=== PATIENT | female | born 1960 | race Caucasian/White ===

== ENCOUNTER 2017-07-01 05:34 | Inpatient (IN) | payer BC, OTHER ==
[~2017-07-01] VITALS: Ht 154.9 cm; Wt 100.3 kg
[~2017-07-01 05:34] MED LIST: AMLODIPINE BES2.5 MG PO; B-COMPLEX-VITA1 EACH PO; CALCIUM 600 MG1 EACH PO; CHOLESTYRAMINE378 GM PO; HYDROCHLOROTHIA25 MG PO; LASIX20 MG PO; LINEZOLID600 MG PO; OMEPRAZOLE40 M1 PO; PENTASA500 MG PO; PREDNISONE5 MG PO; RISEDRONATE SOD35 M1 PO; TAMOXIFEN CITRA20 MG PO; TRAMADOL HCL50 MG PO
[2017-07-01 06:50] LABS: EOSINOPHIL (%) 0.5 % (0-5); EOSINOPHIL COUNT 0.1 K/uL (0-0.3); IMMATURE GRANULOCYTE (%) 0.3 % (0.0-0.7); IMMATURE GRANULOCYTE COUNT 0.1 K/uL; LYMPHOCYTE COUNT 2.7 K/uL (1.0-2.8); MCH 25.3 PG (29.0-34.0); MCHC 31.1 G/DL (30.0-36.0); MCV 81.3 FL (83-99); MEAN PLAT.VOLUME 9.3 uM^3 (9.5-12.4); MONOCYTE (%) 5.7 % (3-12); MONOCYTE COUNT 0.8 K/uL (0-0.8); NEUTROPHIL (%) 75.3 % (45-76); PLATELET COUNT 279 K/uL (156-360); RBC DIS.WIDTH-CV 15.9 % (11.8-14.6); RBC DIS.WIDTH-SD 47.1 % (39-53); RED BLOOD COUNT 4.43 M/uL (3.80-5.20); WHITE BLOOD COUNT 14.7 K/uL (4.1-10.2)
[2017-07-01 07:18] LABS: ANION GAP 10 MEQ/L (2-14); CHLORIDE 101 MEQ/L (99-109); SAMPLE HEMOLYSIS CHECK 0; SAMPLE ICTERIC CHECK 0; SAMPLE LIPEMIA CHECK 0; SODIUM 138 MEQ/L (136-147)
[2017-07-01 07:23] LABS: GFR ESTIMATE (CALCULATED) 55 mL/min/; GLUCOSE 81 mg/dL (70-99); UREA NITROGEN (BUN) 12 mg/dL (9-23)
[2017-07-01] MEDS ORDERED: CYANOCOBAL1000 MCG/2 IM (08:46)
[2017-07-01 10:46] VITALS: BP 119/59
[2017-07-01 15:29] VITALS: BP 126/61
[2017-07-01 19:28] VITALS: BP 133/66
[2017-07-01 23:41] VITALS: BP 152/63
[2017-07-02 03:56] VITALS: BP 123/58
[2017-07-02 06:26] LABS: EOSINOPHIL (%) 1.2 % (0-5); EOSINOPHIL COUNT 0.2 K/uL (0-0.3); IMMATURE GRANULOCYTE (%) 0.3 % (0.0-0.7); INSTRUMENT ABS NEUTROPHIL CT 9.1 K/uL; MCHC 31.5 G/DL (30.0-36.0); MCV 82.5 FL (83-99); MEAN PLAT.VOLUME 10.1 uM^3 (9.5-12.4); MONOCYTE (%) 6.1 % (3-12); MONOCYTE COUNT 0.8 K/uL (0-0.8); NEUTROPHIL (%) 69.5 % (45-76); NEUTROPHIL COUNT 9.1 K/uL (1.8-6.4); PLATELET COUNT 248 K/uL (156-360); RBC DIS.WIDTH-CV 16.4 % (11.8-14.6); RBC DIS.WIDTH-SD 49.3 % (39-53); WHITE BLOOD COUNT 13.1 K/uL (4.1-10.2)
[2017-07-02 06:59] LABS: ANION GAP 10 MEQ/L (2-14); CHLORIDE 105 MEQ/L (99-109); GFR ESTIMATE (CALCULATED) 55 mL/min/; GLUCOSE 99 mg/dL (70-99); POTASSIUM 3.1 MEQ/L (3.7-5.4); SAMPLE HEMOLYSIS CHECK 0; SAMPLE ICTERIC CHECK 0; SAMPLE LIPEMIA CHECK 0; SODIUM 139 MEQ/L (136-147); UREA NITROGEN (BUN) 9 mg/dL (9-23)
[2017-07-02 07:03] VITALS: BP 119/57
[2017-07-02 11:18] VITALS: BP 139/63
[2017-07-02 15:20] VITALS: BP 138/67
[2017-07-02 19:56] VITALS: BP 127/68
[2017-07-02 23:00] VITALS: BP 135/64
[2017-07-03 02:24] LABS: METH RESISTANT S AUREUS PCR NEGATIVE (NEGATIVE)
[2017-07-03 02:53] LABS: PROBE CHECK PASS; SPECIMEN PROCESSING CONTROL PASS
[2017-07-03 03:40] VITALS: BP 144/67
[2017-07-03 07:45] VITALS: BP 131/60
[2017-07-03 08:10] LABS: EOSINOPHIL (%) 2.2 % (0-5); EOSINOPHIL COUNT 0.2 K/uL (0-0.3); HEMATOCRIT 33.7 % (36.0-46.0); IMMATURE GRANULOCYTE (%) 0.2 % (0.0-0.7); INSTRUMENT ABS NEUTROPHIL CT 5.4 K/uL; LYMPHOCYTE COUNT 3.3 K/uL (1.0-2.8); MCHC 31.5 G/DL (30.0-36.0); MCV 82.8 FL (83-99); MEAN PLAT.VOLUME 9.6 uM^3 (9.5-12.4); MONOCYTE COUNT 0.8 K/uL (0-0.8); NEUTROPHIL (%) 55.5 % (45-76); NEUTROPHIL COUNT 5.4 K/uL (1.8-6.4); PLATELET COUNT 241 K/uL (156-360); RBC DIS.WIDTH-CV 16.3 % (11.8-14.6); RBC DIS.WIDTH-SD 49.2 % (39-53); RED BLOOD COUNT 4.07 M/uL (3.80-5.20); WHITE BLOOD COUNT 9.8 K/uL (4.1-10.2)
[2017-07-03 10:02] LABS: ANION GAP 10 MEQ/L (2-14); CHLORIDE 105 MEQ/L (99-109); GFR ESTIMATE (CALCULATED) > 59 mL/min/; GLUCOSE 77 mg/dL (70-99); POTASSIUM 3.7 MEQ/L (3.7-5.4); SAMPLE HEMOLYSIS CHECK 0; SAMPLE ICTERIC CHECK 0; SAMPLE LIPEMIA CHECK 0; SODIUM 140 MEQ/L (136-147); UREA NITROGEN (BUN) 9 mg/dL (9-23)
[2017-07-03 15:58] VITALS: BP 141/88
[2017-07-03 23:26] VITALS: BP 137/77
[2017-07-04 06:26] LABS: EOSINOPHIL COUNT 0.2 K/uL (0-0.3); HEMATOCRIT 32.7 % (36.0-46.0); IMMATURE GRANULOCYTE (%) 0.2 % (0.0-0.7); LYMPHOCYTE COUNT 3.1 K/uL (1.0-2.8); MCH 25.4 PG (29.0-34.0); MCHC 30.6 G/DL (30.0-36.0); MCV 83.2 FL (83-99); MONOCYTE (%) 8.8 % (3-12); MONOCYTE COUNT 0.7 K/uL (0-0.8); NEUTROPHIL (%) 49.8 % (45-76); PLATELET COUNT 255 K/uL (156-360); RBC DIS.WIDTH-CV 15.9 % (11.8-14.6); RBC DIS.WIDTH-SD 48.9 % (39-53); RED BLOOD COUNT 3.93 M/uL (3.80-5.20)
[2017-07-04 06:53] LABS: ANION GAP 7 MEQ/L (2-14); CHLORIDE 106 MEQ/L (99-109); GFR ESTIMATE (CALCULATED) > 59 mL/min/; GLUCOSE 87 mg/dL (70-99); POTASSIUM 3.2 MEQ/L (3.7-5.4); SAMPLE HEMOLYSIS CHECK 0; SAMPLE ICTERIC CHECK 0; SAMPLE LIPEMIA CHECK 0; SODIUM 142 MEQ/L (136-147); UREA NITROGEN (BUN) 9 mg/dL (9-23)
[2017-07-04] MEDS ORDERED: FLORASTOR250 MG PO (07:22)
[2017-07-04] MEDS ORDERED: ZYVOX600 MG PO (07:22)
[2017-07-04 08:18] VITALS: BP 148/72
[2017-07-04 16:04] VITALS: BP 140/75
== END 2017-07-04 18:12 | disposition home or self-care (01) | DRG 600 ==
LOC: EME 05:34 → EDOF 08:29 → 5EAST 08:29 → ENRESERV 08:38 → 5EAST 10:39 → ENPENDDIS 07-04 → 5EAST 07-04 18:12
PROVIDERS: Emergency Medicine; Internal Medicine Infectious Disease; Physician Assistant; Physician Assistant Medical
DX: N61.0 Mastitis without abscess (principal); B95.61 Methicillin susceptible Staphylococcus aureus infection as the cause of diseases classified elsewhere; E87.6 Hypokalemia; I10 Essential (primary) hypertension; K50.90 Crohn's disease, unspecified, without complications; M81.0 Age-related osteoporosis without current pathological fracture; Z79.52 Long term (current) use of systemic steroids; Z79.810 Long term (current) use of selective estrogen receptor modulators (SERMs); Z85.3 Personal history of malignant neoplasm of breast; Z86.73 Personal history of transient ischemic attack (TIA), and cerebral infarction without residual deficits; Z92.21 Personal history of antineoplastic chemotherapy; Z92.3 Personal history of irradiation
CPT/HCPCS: 80048; 80202; 83605; 85025; 87040; 87641; 99281; 99285; J0690; J0696; J1170; J1650; J2405; J3370; J3480; J7050; J7512